=== PATIENT | male | born 1995 | race Caucasian/White ===

== ENCOUNTER 2020-09-12 09:13 | Day surgery (SDC) | payer OTHER ==
[~2020-09-12] VITALS: Ht 182.9 cm; Wt 108.9 kg
--- NOTE | ~2020-09-12 | O ---
[address] [address] OPERATIVE REPORT Name: BANDAR RITCHIE Room #: DEP [facility].#: [id number] Admission: 09/12/20 Attend Phys: Lane Cr MD Discharge: 09/12/20 Date of : [birth year] Report #: [id number] THIS REPORT FOR: cc: Mahi Oneill MD, Kay T. MD McCabe,Lane Fuentes MD ~ DOC #: [id number] Lane Cr MD DATE OF SERVICE: 09/12/2020 SERVICE: Orthopedics. FACILITY: [facility]. SURGEON: Lane Cr MD COTTON AGENT: Sneha Hines NP INDICATION FOR COTTON AGENT: Extremity positioning, suture management, assistance with repair. PREOPERATIVE DIAGNOSES: 1. Left knee pain. 2. Left knee anterior horn lateral meniscus tear. POSTOPERATIVE DIAGNOSES: 1. Left knee pain. 2. Left knee anterior horn lateral meniscus tear PROCEDURE: Left knee arthroscopy with lateral meniscus repair. COMPLICATIONS: None. DRAINS: None. SPECIMENS: None. ANESTHESIA: General. FINDINGS: 1. Intact medial and patellofemoral compartments with intact cruciates and menisci. 2. Longitudinal tear of the anterior horn of the lateral meniscus with a femoral-sided partial thickness flap tear with some fibrotic tissue indicating attempted healing, treated with 4-suture repair. [address] [address] OPERATIVE REPORT Name: BANDAR RITCHIE Room #: DEP [facility]#: [id number] Admission: 09/12/20 Attend Phys: Lane Cr MD Discharge: 09/12/20 Date of : [birth year] Report #: [id number] HISTORY: The patient is a 25-year-old young man who injured himself in a physically demanding job and we tried extensive conservative managements including rest, activity modifications, physical therapy, oral medicines. He had an intraarticular injection, but continued to have significant pain. He had an MRI which showed an anterior horn lateral meniscus tear that was horizontal in its orientation with the communication on the femoral side and had a vertical component too. Ultimately, he elected to undergo surgical treatment due to continued worsening pain and symptoms. Risks, benefits, alternatives, and indication of surgery discussed with him in detail. Risks include but are not limited to pain, bleeding, infection, injuring nerves or blood vessels, persistent pain despite surgical intervention, failure of any repairs, progression of preexisting chondral injury, stiffness, need for further surgery as well as complications related to anesthesia. Despite the risks, he wished to proceed. PROCEDURE IN DETAIL: After left lower extremity was correctly identified in the preoperative holding area, the operative extremity, the patient was taken to the operating room where general anesthesia was induced without complications, padded appropriately. Prophylactic antibiotics were administered in appropriate time. Tourniquet was applied to left leg. Left lower extremity was then prepped and draped in standard sterile fashion. Timeout procedure performed. Esmarch were used, tourniquet inflated to 250 mmHg. Standard anterolateral viewing portal was established followed by anteromedial working portal. Diagnostic arthroscopy revealed the above findings. A limited synovectomy was performed. The medial compartment and patellofemoral compartments were found to be normal. The cruciates were normal. The leg was placed in the [id number] position and the lateral compartment overall was healthy other than this anterior horn lateral meniscus tear. The scope was placed in the anteromedial portal to allow better visualization of the anterior horn of the lateral meniscus and this is where we could see the flap tear on the femoral side that had tried to heal, but had failed and so I used an 11 blade to undercut this tissue because on palpation, it was very firm and of poor quality and would not have held stitch very well, but the tear did propagate deeper with a vertical component and I felt that a repair was most appropriate and so after resecting this, I used the shaver to abrade the anterior horn of the lateral meniscus and then used the Arthrex Meniscal Scorpion to place a total of 4 cerclage sutures around the horizontal/vertical anterior horn lateral meniscus tear. The anterior root was attached and so no bony fixation was required. After these stitches were passed and tied, the meniscus was probed and found to be stable at this point, so the arthroscopic effusion was drained. Instruments were removed. Portal sites were closed. Sterile dressing was applied followed by compression stocking and the knee immobilizer. The patient was awakened from anesthesia and taken to recovery room in stable condition. No complications. All counts were reported as correct. [address] [address] OPERATIVE REPORT Name: BANDAR RITCHIE Room #: DEP [facility]#: [id number] Admission: 09/12/20 Attend Phys: Lane Cr MD Discharge: 09/12/20 Date of : [birth year] Report #: [id number] POSTOPERATIVE PLAN: Nonweightbearing left lower extremity x 3 weeks with progression of weightbearing thereafter. Range of motion is unrestricted with physical therapy. Lane Cr MD MPM/NIT By: [id number] MD /nt
[~2020-09-12 09:13] MED LIST: PEPCID20 MG PO
[2020-09-12 10:17] VITALS: BP 128/72
[2020-09-12 12:34] VITALS: BP 128/72
== END 2020-09-12 12:45 | disposition home or self-care (01) ==
LOC: OR 09:13 → TBA 09:29 → OR 12:11
PROVIDERS: ATTEND Orthopaedic Surgery Sports Medicine
DX: M25.562 Pain in left knee (principal); M23.242 Derangement of anterior horn of lateral meniscus due to old tear or injury, left knee; K21.9 Gastro-esophageal reflux disease without esophagitis; Z98.890 Other specified postprocedural states; Z79.899 Other long term (current) drug therapy; Z87.442 Personal history of urinary calculi
CPT/HCPCS: 50010; 50101; 50405; 56527; 57103; 57180; 58589; 58680; 58875; 58876; 62110; 62900; 70005